=== PATIENT | female | born 1965 ===

== ENCOUNTER 2019-07-04 05:40 | Outpatient (CLI) | payer BC ==
[~2019-07-04] VITALS: Ht 167.7 cm; Wt 86.4 kg
[2019-07-04] MEDS ORDERED: CETI10TA20 PO (14:38)
== END 2019-07-04 14:42 | disposition home or self-care (01) ==
LOC: PREOP 05:40
PROVIDERS: ATTEND Otolaryngology Otolaryngology/Facial Plastic Surgery
DX: Z01.818 Encounter for other preprocedural examination (principal)

== ENCOUNTER 2019-07-13 07:34 | Day surgery (SDC) | payer BC ==
[2019-07-13] VITALS (12 sets, daily range): BP systolic 136–183; BP diastolic 72–86
[~2019-07-13] VITALS: Ht 167 cm; Wt 86.4 kg
[~2019-07-13 07:34] MED LIST: CETI10TA20 PO
[2019-07-13] MEDS ORDERED: HYDROCORTISONE 100 MG/2 ML (Solu-CORTEF) VIAL IV ONE (07:45)
[2019-07-13] MEDS ORDERED: AMPICILLIN/SULBACTAM INJECTION 1.5 GM in NS (IVPB) 100 ML IV ONE (07:45)
[2019-07-13] MEDS ORDERED: LIDOCAINE PF 1% 5 ML (XYLOCAINE) AMP ONE (08:04)
[2019-07-13] MEDS ORDERED: BSS 15 ML ONE (08:12)
[2019-07-13] MEDS ORDERED: LIDOCAINE/EPI 1%-1:100,000 (XYLOCAINE) 20ML ONE (08:12)
[2019-07-13] MEDS ORDERED: COCAINE HCL 4% 2 ML SYR ONE (08:12)
[2019-07-13] MEDS ORDERED: PHENYLEPHRINE 0.5% NASAL SPR (NEO-SYNEPHRINE) REG ONE (08:12)
[2019-07-13] MEDS: LACTATED RINGERS 1,000 ML IV PRN ×2 (08:14→10:35)
[2019-07-13 08:23] LABS: BASOPHILS % (AUTO) 0 % (0-10); EOSINOPHILS # (AUTO) 0.2 10^3/uL (0.0-0.3); EOSINOPHILS % (AUTO) 2 % (0-10); HEMATOCRIT 40 % (35-52); HEMOGLOBIN 13.6 G/DL (11.5-16.0); LYMPHOCYTES # (AUTO) 1.8 X 10^3 (1.0-4.0); LYMPHOCYTES % (AUTO) 22 % (12-44); MEAN CORPUSCULAR HEMOGLOBIN 31 PG (25-34); MEAN CORPUSCULAR HGB CONC 34 G/DL (32-36); MEAN CORPUSCULAR VOLUME 91 FL (80-99); MEAN PLATELET VOLUME 8.5 FL (7.4-10.4); MONOCYTES # (AUTO) 0.7 X 10^3 (0.0-1.0); MONOCYTES % (AUTO) 8 % (0-12); NEUTROPHILS # (AUTO) 5.9 X 10^3 (1.8-7.8); NEUTROPHILS % (AUTO) 69 % (42-75); PLATELET COUNT 319 10^3/uL (130-400); RED CELL DISTRIBUTION WIDTH 13.5 % (10.0-14.5); WHITE BLOOD COUNT 8.6 10^3/uL (4.3-11.0)
[2019-07-13] MEDS ORDERED: SEVOFLURANE (ULTANE) 15 ML INHAL SOLN ONE ×6 (08:23→10:52)
[2019-07-13] MEDS ORDERED: fentaNYL INJECTION 100 MCG/2 ML AMP ONE ×2 (08:23→11:02)
[2019-07-13] MEDS ORDERED: LIDOCAINE PF 2% 5 ML (XYLOCAINE) VIAL ONE (08:23)
[2019-07-13] MEDS ORDERED: proPOfol 200 MG/20 ML (DIPRIVAN) VIAL IV ONE ×2 (08:23→11:00)
[2019-07-13] MEDS ORDERED: ROCURONIUM 10 MG/ML 5 ML SYRINGE IV ONE (08:23)
[2019-07-13] MEDS ORDERED: MIDAZOLAM 2 MG/2 ML (VERSED) VIAL ONE (08:24)
[2019-07-13] MEDS ORDERED: DEXAMETHASONE 10 MG/ML (DECADRON) 1 ML VIAL ONE (08:25)
[2019-07-13] MEDS ORDERED: ONDANSETRON 4 MG/2 ML (SDV) Z0FRAN ONE (08:25)
[2019-07-13 08:32] LABS: BUN/CREATININE RATIO 17; CALCIUM 9.1 MG/DL (8.5-10.1); CARBON DIOXIDE 25 MMOL/L (21-32); CHLORIDE 106 MMOL/L (98-107); CREATININE SERUM 0.84 MG/DL (0.60-1.30); GFR ESTIMATED > 60; GLUCOSE 97 MG/DL (70-105); POTASSIUM 3.9 MMOL/L (3.6-5.0); SODIUM 141 MMOL/L (135-145)
--- NOTE | 2019-07-13 08:58 | Progress Note-Pre Operative ---
Pre-Operative Progress Note H&P Reviewed The H&P was reviewed, patient examined and no changes noted. Date Seen by Provider: Jul 13, 2019 Time Seen by Provider: 08:50 Date H&P Reviewed: Jul 13, 2019 Time H&P Reviewed: 08:50 Pre-Operative Diagnosis: Bilat Chronic Sinusitis, Deviated Septum, Bialt Hyper of Inf Turbs AUSTEN FROST MD Jul 13, 2019 08:58 POS
[2019-07-13] MEDS ORDERED: NEOSTIGMINE 3 MG/3 ML VIAL ONE (10:52)
[2019-07-13] MEDS ORDERED: GLYCOPYRROLATE 0.2 MG/ML (ROBINUL) 2 ML VIAL ONE (10:52)
[2019-07-13] MEDS ORDERED: D5 1/2 NS W/KCL 20 MEQ/L 1,000 ML IV SCH (11:14)
--- NOTE | 2019-07-13 11:14 | Progress Note-Post Operative ---
Post-Operative Progess Note Surgeon (s)/Applications Development Analyst (s) Surgeon AUSTEN FROST MD Applications Development Analyst n/a Pre-Operative Diagnosis Bilat Chronic Sinusitis, Deviated Septum, Bialt Hyper of Inf Turbs Post-Operative Diagnosis same Post-Op Procedure Note Date of Procedure: Jul 13, 2019 Name of Procedure Performed: Bilat ESS, Nasal Septoplasty, Bilat Red of INf Turbs Description & Findings Description and Findings: n/a Anesthesia Type get Estimated Blood Loss minimal Packing none. Specimen(s) collected/removed bilat chornic Sinus Disease, nasal septum AUSTEN FROST MD Jul 13, 2019 11:14 POS
[2019-07-13] MEDS ORDERED: predniSONE 20 MG TAB PO ONE (11:15)
[2019-07-13] MEDS ORDERED: PROMETHAZINE INJ 25 MG/ML (PHENERGAN) AMP IVP PRN (11:15)
[2019-07-13] MEDS ORDERED: HYDROcodone/APAP 5 MG/325 MG (LORTAB) TAB PO PRN (11:15)
[2019-07-13] MEDS ORDERED: ACETAMINOPHEN 325 MG TABLET PO PRN (11:15)
[2019-07-13] MEDS ORDERED: ONDANSETRON 4 MG/2 ML (SDV) Z0FRAN IVP PRN (11:45)
[2019-07-13] MEDS ORDERED: HYDROmorphone 2 MG/ML VIAL (DILAUDID) IV ONE (11:45)
[2019-07-13] MEDS ORDERED: morphine INJ 10 MG/ML 1ML (SYR OR VIAL) IVP ONE (11:45)
--- NOTE | 2019-07-13 12:20 | Anesthesia-General Post-Op ---
General Patient Condition Mental Status/LOC: Same as Preop Cardiovascular: Satisfactory Nausea/Vomiting: Absent Respiratory: Satisfactory Pain: Controlled Complications: Absent Post Op Complications Complications None Follow Up Care/Instructions Patient Instructions None needed. Anesthesia/Patient Condition Patient Condition Patient is doing well, no complaints, stable vital signs, no apparent adverse anesthesia problems. LARA LO DO Jul 13, 2019 12:20 POS
[2019-07-13] MEDS ORDERED: AMOX500C2 PO (12:50)
[2019-07-13] MEDS ORDERED: PRD20T PO (12:50)
[2019-07-13] MEDS ORDERED: HYDR-3812 PO (12:50)
[2019-07-13] MEDS ORDERED: predniSONE 20 MG TAB ONE (13:21)
== END 2019-07-13 13:55 | disposition home or self-care (01) ==
LOC: SDC 07:34
PROVIDERS: ATTEND Otolaryngology Otolaryngology/Facial Plastic Surgery
DX: J34.2 Deviated nasal septum (principal); J32.9 Chronic sinusitis, unspecified; J34.3 Hypertrophy of nasal turbinates; R09.81 Nasal congestion; Z79.899 Other long term (current) drug therapy; Z90.710 Acquired absence of both cervix and uterus; Z90.49 Acquired absence of other specified parts of digestive tract
CPT/HCPCS: 36415; 80048; 85025; 87081; 93005